=== PATIENT | male | born 1990 | race Caucasian/White ===

== ENCOUNTER 2017-12-19 18:04 | Observation (INO) | payer MEDICAID ==
[~2017-12-19] VITALS: Ht 182.9 cm; Wt 95.3 kg
[2017-12-19] MEDS ORDERED: LEVE500T53 PO (18:50)
[2017-12-19] MEDS ORDERED: ZIPR20CA2 PO (18:50)
[2017-12-19] MEDS ORDERED: LITH150C PO (18:50)
[2017-12-19] MEDS ORDERED: CLON2TAB PO (18:50)
[2017-12-19] MEDS ORDERED: DIVA250T4 PO (18:50)
[2017-12-19 18:58] LABS: BASOPHILS # (AUTO) 0.03 x10^3/uL (0-0.1); BASOPHILS % (AUTO) 0 % (0-1); EOSINOPHILS # (AUTO) 0.18 x10^3/uL (0-0.4); EOSINOPHILS % (AUTO) 2 % (1-7); LYMPHOCYTES # (AUTO) 2.12 x10^3/uL (1-3.4); LYMPHOCYTES % (AUTO) 24 % (22-44); MD NO; MEAN CORPUSCULAR HEMOGLOBIN 31.7 pg (27.5-34.5); MEAN CORPUSCULAR HGB CONC 34.1 g/dL (33.2-36.2); MEAN CORPUSCULAR VOLUME 93.1 fL (81-97); MEAN PLATELET VOLUME 8.6 fL (7.4-10.4); MONOCYTES # (AUTO) 0.88 x10^3/uL (0.2-0.8); MONOCYTES % (AUTO) 10 % (2-9); NEUTROPHILS # (AUTO) 5.73 x10^3/uL (1.8-6.8); NEUTROPHILS % (AUTO) 64 % (42-75); PLATELET COUNT 304 x10^3/uL (130-400); RED BLOOD COUNT 4.24 x10^6/uL (4.38-5.82); RED CELL DISTRIBUTION WIDTH 14.5 % (9.4-14.8)
[2017-12-19 19:08] LABS: ALANINE AMINOTRANSFERASE 23 U/L (12-78); ALBUMIN 3.8 g/dL (3.4-5.0); ANION GAP 7 mmol/L (5-15); CALCIUM 8.7 mg/dL (8.5-10.1); CHLORIDE 104 mmol/L (98-107); CREATININE 0.71 mg/dL (0.7-1.3)
[2017-12-19 19:10] LABS: SALICYLATE LEVEL < 1.7 mg/dL (2.8-20.0)
[2017-12-19 19:12] LABS: ALKALINE PHOSPHATASE 68 U/L (45-117); BILIRUBIN,TOTAL 0.3 mg/dL (0.2-1.0); TOTAL PROTEIN 7.3 g/dL (6.4-8.2)
[2017-12-19 19:15] LABS: ACETAMINOPHEN < 2 mcg/mL (10-30)
[2017-12-19 20:17] LABS: AMPHETAMINE SCREEN, URINE Negative (Negative); BARBITURATE SCREEN, URINE Negative (Negative); BENZODIAZEPINE SCREEN, URINE Negative (Negative); CANNABINOID SCREEN, URINE Positive (Negative); COCAINE SCREEN, URINE Negative (Negative); METHADONE SCREEN, URINE Negative (Negative); OPIATE SCREEN, URINE Negative (Negative)
[2017-12-19] MEDS ORDERED: ZIPR20CA3 PO (20:49)
[2017-12-19] MEDS ORDERED: LITH300T3 PO (20:49)
[2017-12-19] MEDS ORDERED: DIVA-59 PO (20:50)
[2017-12-19] MEDS ORDERED: LITH600C PO (20:50)
[2017-12-19] MEDS ORDERED: CLON2TAB9 PO (20:50)
[2017-12-19] MEDS ORDERED: DOCUSATE 100 MG CAPSULE PO PRN (21:00)
[2017-12-19] MEDS ORDERED: ACETAMINOPHEN 325 MG TABLET PO PRN (21:00)
[2017-12-19] MEDS ORDERED: LORazepam 1MG TABLET PO PRN (21:00)
[2017-12-19] MEDS ORDERED: LORazepam 2 MG/ML, 1ML IM PRN (21:00)
[2017-12-19] MEDS: NICOTINE 7 MG/24 HR PATCH.TD24 TD SCH (21:00)
[2017-12-20 00:15] VITALS: BP 117/71
[2017-12-20] MEDS: LEVETIRACETAM 500 MG TABLET PO SCH ×3 (02:45→20:29)
[2017-12-20 07:59] VITALS: BP 116/76
[2017-12-20] MEDS ORDERED: LITHIUM CARBONATE 150 MG CAPSULE ONE (08:45)
[2017-12-20] MEDS: DIVALPROEX 250 MG TAB.ER.24H PO SCH (08:46)
[2017-12-20] MEDS: ZIPRASIDONE 20MG CAPSULE PO SCH (08:46)
[2017-12-20] MEDS: LITHIUM CARBONATE 300 MG CAPSULE PO SCH ×2 (08:47→20:27)
[2017-12-20 19:46] VITALS: BP 112/70
[2017-12-20] MEDS: NICOTINE 7 MG/24 HR PATCH.TD24 TD SCH (20:28)
[2017-12-21 07:37] VITALS: BP 112/73
[2017-12-21] MEDS: DIVALPROEX 250 MG TAB.ER.24H PO SCH (09:24)
[2017-12-21] MEDS: LEVETIRACETAM 500 MG TABLET PO SCH ×2 (09:25→20:36)
[2017-12-21] MEDS: LITHIUM CARBONATE 300 MG CAPSULE PO SCH ×2 (09:29→20:37)
[2017-12-21] MEDS: ZIPRASIDONE 20MG CAPSULE PO SCH (10:00)
[2017-12-21] MEDS: NICOTINE 7 MG/24 HR PATCH.TD24 TD SCH (20:38)
[2017-12-21 20:43] VITALS: BP 100/69
[2017-12-22 08:12] VITALS: BP 120/77
[2017-12-22] MEDS: LEVETIRACETAM 500 MG TABLET PO SCH ×2 (08:18→20:15)
[2017-12-22] MEDS: LITHIUM CARBONATE 300 MG CAPSULE PO SCH ×2 (08:18→20:15)
[2017-12-22] MEDS: DIVALPROEX 250 MG TAB.ER.24H PO SCH (08:18)
[2017-12-22] MEDS: ZIPRASIDONE 20MG CAPSULE PO SCH (08:18)
[2017-12-22 19:35] VITALS: BP 122/76
[2017-12-22] MEDS: NICOTINE 7 MG/24 HR PATCH.TD24 TD SCH (21:00)
[2017-12-23 07:56] VITALS: BP 113/71
[2017-12-23] MEDS: DIVALPROEX 250 MG TAB.ER.24H PO SCH (08:32)
[2017-12-23] MEDS: LEVETIRACETAM 500 MG TABLET PO SCH (08:33)
[2017-12-23] MEDS: LITHIUM CARBONATE 300 MG CAPSULE PO SCH (08:33)
[2017-12-23] MEDS: ZIPRASIDONE 20MG CAPSULE PO SCH (08:33)
== END 2017-12-23 11:40 | disposition home or self-care (01) ==
LOC: ED 18:47 → INTOOBSV 20:19 → EDIP 20:19 → 2N 12-20 00:07
PROVIDERS: ADMIT Internal Medicine; ATTEND Internal Medicine
DX: R45.851 Suicidal ideations (principal); R44.0 Auditory hallucinations; G40.909 Epilepsy, unspecified, not intractable, without status epilepticus; F31.9 Bipolar disorder, unspecified; F20.9 Schizophrenia, unspecified; F12.10 Cannabis abuse, uncomplicated; F17.200 Nicotine dependence, unspecified, uncomplicated; M41.9 Scoliosis, unspecified; Z59.0 Homelessness; Z91.5 Personal history of self-harm
CPT/HCPCS: 36415; 80053; 80178; 80307; 80329; 85025; 93005; 99285; G0378; G0480

== ENCOUNTER 2017-12-29 14:40 | Emergency (ER) | payer MEDICAID ==
[~2017-12-29] VITALS: Ht 182.9 cm; Wt 88.0 kg
[~2017-12-29 14:40] MED LIST: CLON2TAB PO; CLON2TAB9 PO; DIVA-59 PO; DIVA250T4 PO; LEVE500T53 PO; LITH150C PO; LITH300T3 PO; LITH600C PO; ZIPR20CA2 PO; ZIPR20CA3 PO
[2017-12-29 14:55] VITALS: BP 124/81
[2017-12-29] MEDS ORDERED: IBUPROFEN 200 MG TABLET PO ONE (15:30)
[2017-12-29] MEDS ORDERED: PROPARACAINE OPHTH 0.5%, 15ML EACHEYE ONE (15:30)
[2017-12-29] MEDS ORDERED: FLUORESCEIN OPHTHALMIC 1 MG STRIP EACHEYE ONE (15:30)
[2017-12-29 15:39] LABS: BASOPHILS # (AUTO) 0.07 x10^3/uL (0-0.1); BASOPHILS % (AUTO) 1 % (0-1); EOSINOPHILS # (AUTO) 0.39 x10^3/uL (0-0.4); EOSINOPHILS % (AUTO) 5 % (1-7); LYMPHOCYTES # (AUTO) 1.77 x10^3/uL (1-3.4); LYMPHOCYTES % (AUTO) 22 % (22-44); MD NO; MEAN CORPUSCULAR HEMOGLOBIN 31.7 pg (27.5-34.5); MEAN CORPUSCULAR HGB CONC 33.8 g/dL (33.2-36.2); MEAN CORPUSCULAR VOLUME 93.7 fL (81-97); MONOCYTES # (AUTO) 0.83 x10^3/uL (0.2-0.8); MONOCYTES % (AUTO) 10 % (2-9); NEUTROPHILS # (AUTO) 5.07 x10^3/uL (1.8-6.8); NEUTROPHILS % (AUTO) 62 % (42-75); PLATELET COUNT 332 x10^3/uL (130-400); RED BLOOD COUNT 4.65 x10^6/uL (4.38-5.82); RED CELL DISTRIBUTION WIDTH 14.6 % (9.4-14.8)
[2017-12-29 15:50] LABS: ALANINE AMINOTRANSFERASE 21 U/L (12-78); ALBUMIN 3.8 g/dL (3.4-5.0); ANION GAP 9 mmol/L (5-15); CALCIUM 9.1 mg/dL (8.5-10.1); CHLORIDE 108 mmol/L (98-107); SALICYLATE LEVEL 1.8 mg/dL (2.8-20.0)
[2017-12-29 15:52] LABS: ACETAMINOPHEN < 2 mcg/mL (10-30); ALKALINE PHOSPHATASE 88 U/L (45-117); BILIRUBIN,TOTAL 0.7 mg/dL (0.2-1.0); TOTAL PROTEIN 7.9 g/dL (6.4-8.2)
[2017-12-29] MEDS ORDERED: IBUPROFEN 200 MG TABLET ONE (16:57)
[2017-12-29 17:50] LABS: AMPHETAMINE SCREEN, URINE Positive (Negative); BARBITURATE SCREEN, URINE Negative (Negative); BENZODIAZEPINE SCREEN, URINE Negative (Negative); CANNABINOID SCREEN, URINE Positive (Negative); COCAINE SCREEN, URINE Negative (Negative); METHADONE SCREEN, URINE Negative (Negative); OPIATE SCREEN, URINE Negative (Negative)
== END 2017-12-29 21:16 | disposition home or self-care (01) ==
LOC: ED 16:00
DX: F32.9 Major depressive disorder, single episode, unspecified (principal); S39.012A Strain of muscle, fascia and tendon of lower back, initial encounter; F20.9 Schizophrenia, unspecified; Z87.891 Personal history of nicotine dependence; X50.1XXA Overexertion from prolonged static or awkward postures, initial encounter; Y93.89 Activity, other specified; Y99.8 Other external cause status; Y92.89 Other specified places as the place of occurrence of the external cause
CPT/HCPCS: 36415; 72110; 80053; 80307; 80329; 85025; 99285; G0480

== ENCOUNTER 2018-04-05 10:25 | Emergency (ER) | payer MEDICAID ==
[~2018-04-05] VITALS: Ht 182.9 cm; Wt 83.6 kg
[2018-04-05 10:27] VITALS: BP 113/69
--- NOTE | 2018-04-05 10:30 | NUR ---
Normal voice, no bruising to neck noted.
[2018-04-05 11:02] LABS: BASOPHILS # (AUTO) 0.08 x10^3/uL (0-0.1); BASOPHILS % (AUTO) 1 % (0-1); EOSINOPHILS # (AUTO) 0.15 x10^3/uL (0-0.4); EOSINOPHILS % (AUTO) 2 % (1-7); LYMPHOCYTES # (AUTO) 1.49 x10^3/uL (1-3.4); LYMPHOCYTES % (AUTO) 17 % (22-44); MD NO; MEAN CORPUSCULAR HEMOGLOBIN 31.3 pg (27.5-34.5); MEAN CORPUSCULAR HGB CONC 34.2 g/dL (33.2-36.2); MEAN CORPUSCULAR VOLUME 91.5 fL (81-97); MEAN PLATELET VOLUME 8.4 fL (7.4-10.4); MONOCYTES # (AUTO) 0.71 x10^3/uL (0.2-0.8); MONOCYTES % (AUTO) 8 % (2-9); NEUTROPHILS % (AUTO) 72 % (42-75); PLATELET COUNT 330 x10^3/uL (130-400); RED BLOOD COUNT 5.08 x10^6/uL (4.38-5.82); RED CELL DISTRIBUTION WIDTH 14.7 % (9.4-14.8)
--- NOTE | 2018-04-05 11:05 | NUR ---
Note undone in EDM - 04/05/18 at 1107 by MAIN PT REPORTS TO ED FOR SI WITH SA BY STABGULATION LAST NIGHT. NECK WITHOUT SIGNS OF INJURY, RESP EVEN AND UNLABORED. PT STATES HX OF DEPRESSION AND SI/SA. PT IN SECURED ROOM, ALL PERSONAL BELONGINGS REMOVED AND PLACED IN SECURED STORAGE. 2 BAGS, CLOTHING, LABELED. SITTER IN PLACE WITH EYES ON PT.
--- NOTE | 2018-04-05 11:08 | NUR ---
PT REPORTS TO ED FOR SI WITH SA BY STRANGULATION LAST NIGHT. NECK WITHOUT SIGNS OF INJURY, RESP EVEN AND UNLABORED. PT STATES HX OF DEPRESSION AND SI/SA. PT IN SECURED ROOM, ALL PERSONAL BELONGINGS REMOVED AND PLACED IN SECURED STORAGE. 2 BAGS, CLOTHING, LABELED. SITTER IN PLACE WITH EYES ON PT.
[2018-04-05 11:13] LABS: ALBUMIN 4.1 g/dL (3.4-5.0); ANION GAP 5 mmol/L (5-15); CALCIUM 9.7 mg/dL (8.5-10.1); CHLORIDE 108 mmol/L (98-107)
[2018-04-05 11:16] LABS: ALANINE AMINOTRANSFERASE 20 U/L (12-78); ALKALINE PHOSPHATASE 101 U/L (45-117); BILIRUBIN,TOTAL 0.3 mg/dL (0.2-1.0); CREATININE 0.98 mg/dL (0.7-1.3); TOTAL PROTEIN 8.1 g/dL (6.4-8.2)
[2018-04-05 11:19] LABS: ACETAMINOPHEN < 2 mcg/mL (10-30); SALICYLATE LEVEL < 1.7 mg/dL (2.8-20.0)
--- NOTE | 2018-04-05 11:25 | NUR ---
PT RESTING ON GURNEY. AWARE OF NEED FOR URINE SAMPLE. PT PROVIDED WITH FLUIDS. SITTER IN PLACE.
--- NOTE | 2018-04-05 12:06 | NUR ---
PT AMBULATORY TO BATHROOM WITH STEADY GAIT FOR URINE SAMPLE
[2018-04-05 12:33] LABS: AMPHETAMINE SCREEN, URINE Positive (Negative); BARBITURATE SCREEN, URINE Negative (Negative); BENZODIAZEPINE SCREEN, URINE Negative (Negative); CANNABINOID SCREEN, URINE Positive (Negative); COCAINE SCREEN, URINE Negative (Negative); METHADONE SCREEN, URINE Negative (Negative); OPIATE SCREEN, URINE Negative (Negative)
--- NOTE | 2018-04-05 13:01 | NUR ---
ROOM SET UP FOR TELEPSYCH CONSULT.
--- NOTE | 2018-04-05 13:29 | NUR ---
TELEPSYCH CONSULT IN PROGRESS AT THIS TIME.
== END 2018-04-05 14:13 | disposition home or self-care (01) ==
LOC: ED 13:00
DX: R45.851 Suicidal ideations (principal); Z72.9 Problem related to lifestyle, unspecified; F20.9 Schizophrenia, unspecified; F31.9 Bipolar disorder, unspecified; Z87.891 Personal history of nicotine dependence
CPT/HCPCS: 36415; 80053; 80307; 80329; 85025; 99284; G0480

== ENCOUNTER 2018-05-10 07:31 | Emergency (ER) | payer MEDICAID ==
[~2018-05-10] VITALS: Ht 182.9 cm; Wt 88.3 kg
--- NOTE | 2018-05-10 07:47 | NUR ---
pt's belonging secured in ED locker, pt notified that BONILLA required, pt given warm blankets, no needs at this time, pt in view of nurses desk. Awaiting BARTOLOME Oscar.
[2018-05-10 08:18] LABS: BASOPHILS # (AUTO) 0.06 x10^3/uL (0-0.1); BASOPHILS % (AUTO) 1 % (0-1); EOSINOPHILS # (AUTO) 0.16 x10^3/uL (0-0.4); EOSINOPHILS % (AUTO) 2 % (1-7); LYMPHOCYTES # (AUTO) 1.99 x10^3/uL (1-3.4); LYMPHOCYTES % (AUTO) 22 % (22-44); MD NO; MEAN CORPUSCULAR HEMOGLOBIN 30.1 pg (27.5-34.5); MEAN CORPUSCULAR HGB CONC 33.4 g/dL (33.2-36.2); MEAN CORPUSCULAR VOLUME 90.2 fL (81-97); MEAN PLATELET VOLUME 7.8 fL (7.4-10.4); MONOCYTES # (AUTO) 0.72 x10^3/uL (0.2-0.8); MONOCYTES % (AUTO) 8 % (2-9); NEUTROPHILS # (AUTO) 5.99 x10^3/uL (1.8-6.8); NEUTROPHILS % (AUTO) 67 % (42-75); PLATELET COUNT 419 x10^3/uL (130-400); RED BLOOD COUNT 4.52 x10^6/uL (4.38-5.82)
[2018-05-10 08:29] LABS: ALANINE AMINOTRANSFERASE 18 U/L (12-78); ALBUMIN 3.3 g/dL (3.4-5.0); ANION GAP 6 mmol/L (5-15); CALCIUM 8.7 mg/dL (8.5-10.1); CHLORIDE 108 mmol/L (98-107); CREATININE 0.61 mg/dL (0.7-1.3)
[2018-05-10 08:33] LABS: ALKALINE PHOSPHATASE 79 U/L (45-117); BILIRUBIN,TOTAL 0.1 mg/dL (0.2-1.0); SALICYLATE LEVEL 2.6 mg/dL (2.8-20.0); TOTAL PROTEIN 7.1 g/dL (6.4-8.2)
[2018-05-10 08:34] LABS: ACETAMINOPHEN < 2 mcg/mL (10-30)
--- NOTE | 2018-05-10 08:48 | NUR ---
Recieved report from MAX Mahajan. All questions answered. Assuming care of pt. Pt resting on gurney. CURRAN
--- NOTE | 2018-05-10 08:56 | NUR ---
Pt moved to ED room 41. Room secured for SI. BORRERO. Pt states, "About 6 to 8 hours ago I tried to strangle myself with a rope around my neck. I don't want to hurt anyone else." Pt provided TV on per request. No other requests at this time. Sitters near doorway in direct line of sight for observation.
--- NOTE | 2018-05-10 08:57 | NUR ---
Pt aware of need of urine sample.
--- NOTE | 2018-05-10 09:06 | NUR ---
STEPHANIE FROM [facility] CALLED, HAS 2 ASSESSMENTS AHEAD OF THIS PATIENT, WILL BE HERE REVA
--- NOTE | 2018-05-10 09:22 | NUR ---
Sitter near doorway in direct line of sight for observation. NADN. No needs expressed at this time. Room remains SI precautions in place. Pt watching TV.
--- NOTE | 2018-05-10 10:25 | NUR ---
Pt resting on gurney watching TV. Room secured for SI precautions. Sitter near doorway in direct line of sight for observation. NADN. No needs requested at this time.
--- NOTE | 2018-05-10 10:43 | NUR ---
Pt states, "Can I get my stuff and be discharged? I am already feeling a lot better, I don't want to hurt myself, I don't want to stay here." ED PA aware. ED PA discussing plan of care with pt.
--- NOTE | 2018-05-10 11:12 | NUR ---
Pt up for discharge. Provided pt with personal belongings and a pair of hospital socks per request. Pt eating crackers and drinking juice. Pt appreciative. Pt deny SI or HI at this time. ADAIR.
[2018-05-10 11:13] VITALS: BP 130/88
--- NOTE | 2018-05-10 11:14 | NUR ---
Patient given discharge instructions and they have confirmed that they understand the instructions. Patient ambulatory with steady gait. Pt left with both personal belongings bags, all personal belongings, and discharge paperwork.
== END 2018-05-10 11:24 | disposition home or self-care (01) ==
LOC: ED 08:04
DX: R45.851 Suicidal ideations (principal); F20.9 Schizophrenia, unspecified; F31.9 Bipolar disorder, unspecified; Z72.9 Problem related to lifestyle, unspecified; F17.200 Nicotine dependence, unspecified, uncomplicated
CPT/HCPCS: 36415; 80053; 80307; 80329; 85025; 99283; G0480

== ENCOUNTER 2018-06-08 12:29 | Emergency (ER) | payer MEDICAID ==
[~2018-06-08] VITALS: Ht 182.9 cm; Wt 92.2 kg
[2018-06-08] MEDS ORDERED: ASPIRIN 81 MG TABLET CHEW PO ONE (13:00)
[2018-06-08 13:06] LABS: BASOPHILS # (AUTO) 0.03 x10^3/uL (0-0.1); BASOPHILS % (AUTO) 0 % (0-1); EOSINOPHILS % (AUTO) 1 % (1-7); LYMPHOCYTES # (AUTO) 1.51 x10^3/uL (1-3.4); LYMPHOCYTES % (AUTO) 19 % (22-44); MD NO; MEAN CORPUSCULAR HEMOGLOBIN 31.2 pg (27.5-34.5); MEAN CORPUSCULAR HGB CONC 34.5 g/dL (33.2-36.2); MEAN CORPUSCULAR VOLUME 90.6 fL (81-97); MEAN PLATELET VOLUME 8.5 fL (7.4-10.4); MONOCYTES # (AUTO) 0.73 x10^3/uL (0.2-0.8); MONOCYTES % (AUTO) 9 % (2-9); NEUTROPHILS # (AUTO) 5.81 x10^3/uL (1.8-6.8); NEUTROPHILS % (AUTO) 71 % (42-75); PLATELET COUNT 279 x10^3/uL (130-400); RED BLOOD COUNT 4.87 x10^6/uL (4.38-5.82); RED CELL DISTRIBUTION WIDTH 15.4 % (9.4-14.8)
[2018-06-08 13:14] LABS: ALBUMIN 4.2 g/dL (3.4-5.0); ANION GAP 8 mmol/L (5-15); CALCIUM 9.4 mg/dL (8.5-10.1); CHLORIDE 106 mmol/L (98-107); CREATININE 0.76 mg/dL (0.7-1.3)
--- NOTE | 2018-06-08 13:15 | NUR ---
PT TO ROOM FROM LOBBY
[2018-06-08 13:18] LABS: TROPONIN I < 0.015 ng/mL (0.000-0.045)
--- NOTE | 2018-06-08 13:35 | NUR ---
PT. IS A & O X 4 WITH C/O CHEST PAIN. PT. HAS HX OF METH USE. CP MONITOR IS IN PLACE. PT. WAS MEDICATED ORDERED. 12 LEAD EKG HAS BEEN DONE. PT. REMAINS PINK,WARM AND DRY. LUNGS ARE CTA. ABD. IS SOFT AND FLAT WITH BS + X 4 QUADS. SIDERAILS REMAIN UP X 2 WITH THE CALL LIGHT IN PLACE.
[2018-06-08] MEDS ORDERED: ASPIRIN 81 MG TABLET CHEW ONE (13:38)
[2018-06-08] MEDS ORDERED: MAALOX/HYOSCYAMINE/LIDOCAINE 45 ML BTL ONE (13:42)
[2018-06-08] MEDS ORDERED: KETOROLAC 30 MG/1 ML ONE (13:42)
--- NOTE | 2018-06-08 13:45 | NUR ---
PT. REMAINS MONITORED AND IS RESTING WITHOUT CONCERNS. VSS. NO ACUTE DISTRESS.
[2018-06-08] MEDS ORDERED: MAALOX/HYOSCYAMINE/LIDOCAINE 45 ML BTL PO ONE (14:00)
[2018-06-08] MEDS ORDERED: KETOROLAC 60 MG/2 ML IM ONE (14:00)
[2018-06-08 14:25] LABS: ALBUMIN 4.3 g/dL (3.4-5.0); BILIRUBIN, DIRECT 0.2 mg/dL (0.1-0.2)
[2018-06-08 14:28] LABS: BILIRUBIN,INDIRECT 0.6 mg/dL (0.0-2.0); BILIRUBIN,TOTAL 0.8 mg/dL (0.2-1.0); TOTAL PROTEIN 8.1 g/dL (6.4-8.2)
--- NOTE | 2018-06-08 14:42 | NUR ---
DR. WEAVER TO THE PT.'S BEDSIDE TO DISCUSS FINDINGS AND PLAN FOR DISCHARGE. PT. BECAME TEARFUL AND STATES HE IS HAVING SI DUE TO FAMILY STRESSORS. PT. STATES HE DOESN'T KNOW IF HE HAS A PLAN. PT. REMAINS MONITORED. MILVIA PENALOZA INFORMED OF PT.'S SI.
--- NOTE | 2018-06-08 15:03 | NUR ---
PT INSTRUCTED ON NEED FOR URINE SAMPLE
[2018-06-08 15:05] LABS: ACETAMINOPHEN < 2 mcg/mL (10-30); SALICYLATE LEVEL < 1.7 mg/dL (2.8-20.0)
--- NOTE | 2018-06-08 16:08 | NUR ---
PT RESTING IN [facility], PT TB EVAL BY [facility]
[2018-06-08 16:18] LABS: AMPHETAMINE SCREEN, URINE Positive (Negative); BARBITURATE SCREEN, URINE Negative (Negative); BENZODIAZEPINE SCREEN, URINE Negative (Negative); CANNABINOID SCREEN, URINE Positive (Negative); COCAINE SCREEN, URINE Negative (Negative); METHADONE SCREEN, URINE Negative (Negative); OPIATE SCREEN, URINE Negative (Negative)
--- NOTE | 2018-06-08 16:28 | NUR ---
called and faxed info to [place] for consult
--- NOTE | 2018-06-08 18:02 | NUR ---
PT LEGAL HOLD PER [facility], PT BEING MOVED TO ROOM 3
--- NOTE | 2018-06-08 18:32 | NUR ---
2 BAGS PT BELONGINGS SECURED IN PSYCH LOCKER
--- NOTE | 2018-06-08 19:10 | NUR ---
REPORT RECEIVED FROM MAX MCGRATH, ASSUMED CARE OF PT. PT GIVEN POWDER TO APPLY TO FEET, STRETCHER MOVED SO PT CAN WATCH TV, NO DISTRESS NOTED, CALL LIGHT IN REACH
[2018-06-08] MEDS ORDERED: ACETAMINOPHEN 325 MG TABLET PO PRN (20:00)
[2018-06-08] MEDS ORDERED: ONDANSETRON ODT 4 MG PO PRN (20:00)
[2018-06-08] MEDS ORDERED: BISACODYL 10 MG SUPP PR PRN (20:00)
[2018-06-08] MEDS ORDERED: POLYETHYLENE GLYCOL 17 GM PACKET PO PRN (20:00)
[2018-06-08] MEDS ORDERED: LEVETIRACETAM 500 MG TABLET ONE (20:49)
[2018-06-08] MEDS ORDERED: ZIPRASIDONE 20MG CAPSULE ONE (20:49)
--- NOTE | 2018-06-08 20:51 | NUR ---
TP RN: PACKET FAXED TO [facility], [facility], AND [facility].
[2018-06-08] MEDS ORDERED: LEVETIRACETAM 500 MG TABLET PO SCH (21:00)
[2018-06-08] MEDS ORDERED: NYSTATIN TOPICAL POWDER 15GM TP SCH (21:00)
[2018-06-08] MEDS ORDERED: ZIPRASIDONE 20MG CAPSULE PO SCH (21:00)
[2018-06-08] MEDS ORDERED: DIVALPROEX 250 MG TABLET.DR PO SCH (21:00)
--- NOTE | 2018-06-08 21:36 | NUR ---
TP RN: CONFIRMATION FAX RECEIVED FROM [facility], [facility], AND [facility].
--- NOTE | 2018-06-08 21:40 | NUR ---
CALL RECEIVED FROM [facility]--PT IS NOW PENDING BUT THEY CAN NOT EXCEPT S/T APPROPRIATE UNIT BEING AT CAPACITY. PER [facility], ACCEPTANCE WILL BE REASSESSED IN MORNING.
--- NOTE | 2018-06-08 21:48 | NUR ---
PT RESTING QUIELTY, WATCHING TV, NO DISTRESS NOTED, SITTER OUTSIDE DOOR
--- NOTE | 2018-06-08 22:31 | NUR ---
P GIVEN CHEERIOS AND MILK, CALM AND COOPERATIVE
--- NOTE | 2018-06-09 00:06 | NUR ---
PT GIVEN SANDWICH AND JUICE, CALM AND COOPERATIVE
--- NOTE | 2018-06-09 01:23 | NUR ---
Gene bates in [facility] - 06/09/18 at 0229 by JAN TELEPSYCH IN PROGRESS
--- NOTE | 2018-06-09 01:28 | NUR ---
RESTING QUIETLY WITH EYES CLOSED, SOFT SNORING HEARD, NO DISTRESS NOTED, SITTER OUTSIDE DOOR
--- NOTE | 2018-06-09 02:30 | NUR ---
PT CONTINUES TO REST WITH EYES CLOSED, SOFT SNORING HEARD, SITTER OUTSIDE DOOR
--- NOTE | 2018-06-09 04:45 | NUR ---
TRESS NOTED, SOFT SNORING HEARD, PT RESTING QUIETLY WITH EYES CLOSED, NO DISTRESS NOTED, SITTER OUT SIDE DOOR
--- NOTE | 2018-06-09 05:26 | NUR ---
PT BEDSIDE REPORT FROM JOHN RN. THIS RN TO ASSUME CARE OF PT. TRANSFERRED TO ROOM 41, FOR SITTER DECOMPRESSION, W/ ROLLER DOORS IN PLACE .SITTER IN HALLWAY. NO IMMEDIATE NEEDS FROM PT.
--- NOTE | 2018-06-09 05:52 | NUR ---
[facility] CALLED FOR REPORT ON PT. RN AT [facility] TO CALL PSYCHIATRIST AND TO UPDATE ON POC AFTER CONVERSATION.
--- NOTE | 2018-06-09 06:16 | NUR ---
PT SLEEPING COMFORTABLY. NADN. RR EVEN AND UNLABORED.
--- NOTE | 2018-06-09 06:59 | NUR ---
PT REPORT TO ARNOL SANTANA.
--- NOTE | 2018-06-09 07:22 | NUR ---
RECEIVED REPORT FROM TREASURE SANTANA, PLAN OF CARE DISCUSSED. ROOM SECURED, SITTER AT BS
[2018-06-09 07:41] VITALS: BP 101/62
--- NOTE | 2018-06-09 08:11 | NUR ---
SPOKE WITH MAI AT [facility]. CALLED [facility] TO INFORM OF APPROX [id number] ETA
[2018-06-09] MEDS ORDERED: SENNA/DOCUSATE TABLET PO SCH (09:00)
--- NOTE | 2018-06-09 09:25 | NUR ---
REMSA HERE TO TAKE PATIENT TO [facility], BELONGINGS WITH PATIENT TWO BAGS.
== END 2018-06-09 09:34 ==
LOC: ED 14:34 → UNDOADMIN 18:03 → EDIP 18:03 → ED 06-09 09:34
DX: F23 Brief psychotic disorder (principal); F15.10 Other stimulant abuse, uncomplicated; B35.3 Tinea pedis; F31.9 Bipolar disorder, unspecified; R07.9 Chest pain, unspecified; R10.13 Epigastric pain; F17.200 Nicotine dependence, unspecified, uncomplicated; Z72.9 Problem related to lifestyle, unspecified
CPT/HCPCS: 36415; 71045; 73660; 80048; 80076; 80307; 80329; 82040; 83690; 84484; 85025; 93005; 96372; 99285; J1885; 96374; G0480

== ENCOUNTER 2018-07-28 07:35 | Emergency (ER) | payer MEDICAID ==
[~2018-07-28] VITALS: Ht 182.9 cm; Wt 102.2 kg
[2018-07-28 07:43] VITALS: BP 132/79
--- NOTE | 2018-07-28 08:37 | NUR ---
PT PLACED IN SI PRECAUTIONS UPON ARRIVAL TO ROOM. RENZO. SITTER IN HALLWAY. PT STATES HE IS CURRENTLY HOMELESS, HAS FAMILY IN HOSPITAL, AND HIS CHILDRENS MOTHER WAS RECENTLY FOUND W/ HEROIN SO HIS CHILDREN ARE IN CPS CUSTODY. ALL OF THESE STRESSORS ARE CAUSING ANXIETY, LAST NIGHT STARTED HAVING SI; THIS MORNING HAD A KNIFE TO CUT HIS THROAT BUT GAVE IT TO A FRIEND TO KEEP HIM SAFE AND CAME HERE FOR HELP INSTEAD. STATES HE HAS CHILDREN AND THAT IS HIS REASON TO LIVE, WANTS HELP FOR HIMSELF. HAS BEEN INPATIENT PSYCH IN THE PAST; ALSO WAS AT [facility] FOR DETOX 2 MONTHS AGO. COOPERATIVE, RECEPTIVE TO HELP FROM STAFF.
--- NOTE | 2018-07-28 08:40 | NUR ---
PT SHOWERED IN SHOWER ROOM. CLEAN GOWN, SOCKS TO PT. AWARE URINE SAMPLE IS NEEDED, WATER TO PT
--- NOTE | 2018-07-28 08:50 | NUR ---
PT STATES HE TOOK HIMSELF OFF HIS HOME [place], [place], AND [place] LAST MONTH.
[2018-07-28 08:57] LABS: BASOPHILS # (AUTO) 0.07 x10^3/uL (0-0.1); BASOPHILS % (AUTO) 1 % (0-1); EOSINOPHILS # (AUTO) 0.08 x10^3/uL (0-0.4); EOSINOPHILS % (AUTO) 1 % (1-7); LYMPHOCYTES # (AUTO) 1.41 x10^3/uL (1-3.4); LYMPHOCYTES % (AUTO) 18 % (22-44); MD NO; MEAN CORPUSCULAR HEMOGLOBIN 30.9 pg (27.5-34.5); MEAN CORPUSCULAR HGB CONC 34.4 g/dL (33.2-36.2); MEAN CORPUSCULAR VOLUME 89.7 fL (81-97); MEAN PLATELET VOLUME 8.7 fL (7.4-10.4); MONOCYTES % (AUTO) 10 % (2-9); NEUTROPHILS # (AUTO) 5.35 x10^3/uL (1.8-6.8); NEUTROPHILS % (AUTO) 69 % (42-75); PLATELET COUNT 282 x10^3/uL (130-400); RED BLOOD COUNT 5.08 x10^6/uL (4.38-5.82); RED CELL DISTRIBUTION WIDTH 15.3 % (9.4-14.8)
[2018-07-28 09:01] LABS: ALANINE AMINOTRANSFERASE 21 U/L (12-78); ALBUMIN 4.1 g/dL (3.4-5.0); ANION GAP 7 mmol/L (5-15); CHLORIDE 106 mmol/L (98-107); CREATININE 0.77 mg/dL (0.7-1.3)
[2018-07-28 09:03] LABS: ALKALINE PHOSPHATASE 99 U/L (45-117); BILIRUBIN,TOTAL 0.6 mg/dL (0.2-1.0); TOTAL PROTEIN 7.9 g/dL (6.4-8.2)
[2018-07-28 09:07] LABS: ACETAMINOPHEN < 2 mcg/mL (10-30); SALICYLATE LEVEL < 1.7 mg/dL (2.8-20.0)
[2018-07-28 09:25] LABS: AMPHETAMINE SCREEN, URINE Positive (Negative); BARBITURATE SCREEN, URINE Negative (Negative); BENZODIAZEPINE SCREEN, URINE Negative (Negative); CANNABINOID SCREEN, URINE Positive (Negative); COCAINE SCREEN, URINE Negative (Negative); METHADONE SCREEN, URINE Negative (Negative); OPIATE SCREEN, URINE Negative (Negative)
--- NOTE | 2018-07-28 09:50 | NUR ---
RESTING COMFORTABLY IN ROOM. NO NEEDS AT THIS TIME. SITTER IN HALLWAY.
--- NOTE | 2018-07-28 10:09 | NUR ---
[facility] AT BEDSIDE
== END 2018-07-28 11:31 ==
LOC: ED 08:34
DX: F33.9 Major depressive disorder, recurrent, unspecified (principal); R45.851 Suicidal ideations; F20.9 Schizophrenia, unspecified; F17.200 Nicotine dependence, unspecified, uncomplicated
CPT/HCPCS: 36415; 80053; 80307; 85025; 99285

== ENCOUNTER 2019-01-16 18:56 | Emergency (ER) | payer MEDICAID, OTHER ==
[~2019-01-16] VITALS: Ht 185.4 cm; Wt 95.0 kg
--- NOTE | 2019-01-16 20:10 | NUR ---
Patient walked back to room. Patient not well kept, hands and clothes well soiled. Strong odor eminating from patient consistent with homelessness. [place] and confirms is homeless at this time. Patient resting in bed comfortably. Informed of provider order for u/a. Patient declines at this time reporting had just urinated prior to being brought back to room. Patient reports will inform sitter electronic imaging system operator when need to urinate arises. Patient changed into gown. All clothing removed except for boxers and belongings (shoes, shorts, and shirt, NO cell phone, watch, or jewelry.) Awaiting pyschiatric evaluation. patient reports attempting to kill himself by cutting his wrists, but no appreciable scars noted on arms. Addendum: 01/16/19 at 2048 by RENATO Doors dropped to eliminate access to medical equipment and linens. Sitter in hallway within view at most 2 steps away from patient.
[2019-01-16 20:32] LABS: BASOPHILS # (AUTO) 0.06 x10^3/uL (0-0.1); BASOPHILS % (AUTO) 1 % (0-1); EOSINOPHILS # (AUTO) 0.28 x10^3/uL (0-0.4); EOSINOPHILS % (AUTO) 4 % (1-7); LYMPHOCYTES # (AUTO) 2.05 x10^3/uL (1-3.4); LYMPHOCYTES % (AUTO) 26 % (22-44); MD NO; MEAN CORPUSCULAR HEMOGLOBIN 31.3 pg (27.5-34.5); MEAN CORPUSCULAR HGB CONC 33.6 g/dL (33.2-36.2); MEAN CORPUSCULAR VOLUME 93.1 fL (81-97); MEAN PLATELET VOLUME 8.3 fL (7.4-10.4); MONOCYTES # (AUTO) 0.93 x10^3/uL (0.2-0.8); MONOCYTES % (AUTO) 12 % (2-9); NEUTROPHILS # (AUTO) 4.59 x10^3/uL (1.8-6.8); NEUTROPHILS % (AUTO) 58 % (42-75); PLATELET COUNT 344 x10^3/uL (130-400); RED BLOOD COUNT 4.35 x10^6/uL (4.38-5.82); RED CELL DISTRIBUTION WIDTH 14.3 % (9.4-14.8)
[2019-01-16 20:41] LABS: ALANINE AMINOTRANSFERASE 22 U/L (12-78); ALBUMIN 3.9 g/dL (3.4-5.0); ANION GAP 9 mmol/L (5-15); CALCIUM 8.7 mg/dL (8.5-10.1); CHLORIDE 107 mmol/L (98-107); CREATININE 0.72 mg/dL (0.7-1.3); SALICYLATE LEVEL 1.9 mg/dL (2.8-20.0)
[2019-01-16 20:43] LABS: ALKALINE PHOSPHATASE 80 U/L (45-117); BILIRUBIN,TOTAL 0.3 mg/dL (0.2-1.0); TOTAL PROTEIN 7.5 g/dL (6.4-8.2)
[2019-01-16 21:46] LABS: AMPHETAMINE SCREEN, URINE Positive (Negative); BARBITURATE SCREEN, URINE Negative (Negative); BENZODIAZEPINE SCREEN, URINE Negative (Negative); CANNABINOID SCREEN, URINE Positive (Negative); COCAINE SCREEN, URINE Negative (Negative); METHADONE SCREEN, URINE Negative (Negative); OPIATE SCREEN, URINE Negative (Negative)
--- NOTE | 2019-01-17 00:50 | NUR ---
Patient resting comfortably. Urine provided for ua and sent off. Patient provided with additional warm blanket. Now resting comfortably on gurney with sitter at bedside.
--- NOTE | 2019-01-17 03:57 | NUR ---
TP: faxed packet to [facility].
--- NOTE | 2019-01-17 04:12 | NUR ---
[facility] CALLED, PT HAS REACHED HIS [facility], AND WILL NOT BE ACCEPETED THERE.
--- NOTE | 2019-01-17 06:53 | NUR ---
Gave report to MAX Suarez. Covered plan of care. Patient to be evaluated by psychiatry provider.
--- NOTE | 2019-01-17 07:02 | NUR ---
Receieved bedside report from MAX Evans. All questions answered. Assuming care of pt at this time. Pt resting on gurney with eyes closed laying on side. Room remains secured for SI and HI. Sitter near doorway in direct line of sight for observation. NADN. No needs expressed at this time.
--- NOTE | 2019-01-17 07:04 | NUR ---
Called and requested hospital bed from housekeeping.
--- NOTE | 2019-01-17 09:04 | NUR ---
Pt provided hospital bed and breakfast tray. Pt ambulates with steady gait and balance. NADN. No other needs expressed. Sitter remains near doorway in direct line of sight for observation.
--- NOTE | 2019-01-17 10:50 | NUR ---
Pt remains resting on hospital bed with eyes closed. TV in room is on. Sitter near doorway in direct line of sight for observation. NADN. No needs requested. Lunch tray ordered for pt.
--- NOTE | 2019-01-17 11:56 | NUR ---
LUNCH RN: PT SLEEPING IN HOSPITAL BED AT THIS TIME. NADN. SOTELO IN LYLE FOR CONTINUOUS MONITORING.
--- NOTE | 2019-01-17 12:04 | NUR ---
LUNCH RN: LUNCH TRAY DELIVERED. PT CALM AND COOPERATIVE AT THIS TIME EATING IN BED. ALL NEEDS MET AT THIS TIME
--- NOTE | 2019-01-17 12:13 | NUR ---
Pt sitting on hospital bed eating lunch tray provided. No needs requested. NADN. Sitter near doorway in direct line of sight for observation.
--- NOTE | 2019-01-17 14:06 | NUR ---
LATE NOTE ENRY FOR 1300: Pt sitting on hospital bed. No needs expressed. TV on. NADN. Sitter near doorway in direct line of sight for observation.
--- NOTE | 2019-01-17 14:08 | NUR ---
Pt resting on gurney watching TV. NADN. No needs expressed. Sitter near doorway in direct line of sight for observation.
[2019-01-17] MEDS ORDERED: ARIPIPRAZOLE 10 MG TABLET ONE (14:43)
[2019-01-17] MEDS: ARIPIPRAZOLE 10 MG TABLET PO SCH (14:48)
--- NOTE | 2019-01-17 14:48 | NUR ---
Provided medication per EMAR. Pt appreciative. Pt requesting snacks and juice. Provided juice and snacks to pt. NADN. No other needs expressed. Sitter near doorway in direct line of sight for jus.
--- NOTE | 2019-01-17 15:49 | NUR ---
Pt resting on hospital bed on left lateral side with eyes closed and unlabored respirations and even chest rise and fall. TV on in pt room. Sitter near doorway in direct line of sight for observation. NADN. No needs expressed.
--- NOTE | 2019-01-17 16:48 | NUR ---
LATE NOTE ENTRY DUE TO PT CARE. Pt provided dinner tray. Pt appreciative. Pt sitting on hospital bed watching TV. Sitter near doorway in direct line of sight for observation. NADN. No other needs expressed.
--- NOTE | 2019-01-17 18:16 | NUR ---
LATE NOTE ENTRY DUE TO PT CARE. Pt resting on hospital bed watching TV. NADN. No needs expressed. Sitter near doorway in direct line of sight for observation.
--- NOTE | 2019-01-17 19:33 | NUR ---
pt resting calmly, provided pt with juice, denies further needs, room secured, sitter at doorway for continous monitoring Addendum: 01/17/19 at 2003 by DONTE late entry 1932-pt stated " still feeling suicidal, plan to cut my wrist or jump on the tracks"
--- NOTE | 2019-01-17 19:38 | NUR ---
Provided report to MAX An. All questions answered. MAX An to assume care of pt at this time.
--- NOTE | 2019-01-17 20:04 | NUR ---
pt resting in bed,. denies needs, respirations even and unlabored, sitter at doorway for continous monitoring
--- NOTE | 2019-01-17 21:20 | NUR ---
pt resting in bed, nad, denies needs at this time, safety measures maintained, sitter at doorway for continous monitoring
--- NOTE | 2019-01-17 22:01 | NUR ---
PT RESTING IN BED, PROVIDED PT WITH PILLOW, DENIES NEEDS AT THIS TIME, SITTER AT DOORWAY FOR CONTINOUS MONITORING
--- NOTE | 2019-01-17 23:11 | NUR ---
PT RESTING IN BED, NAD, EQUAL CHEST RISE/FALL OBSERVED, SITTER AT DOORWAY FOR CONTINOUS MONITORING
--- NOTE | 2019-01-18 00:28 | NUR ---
BREAK RN: PT SLEEPING. SITTER OUTSIDE DOOR. ROOM REMAINS SECURE, WILL CONTINUE TO MONITOR.
--- NOTE | 2019-01-18 00:57 | NUR ---
PT RESTING IN BED, NAD, EQUAL CHEST RISE/FALL OBSERVED, SITTER AT DOORWAY FOR CONTINOUS MONITORING
--- NOTE | 2019-01-18 02:09 | NUR ---
pt resting in bed with eyes closed, nadn, equal chest rise/fall observed, sitter at doorway for continous monitoring
--- NOTE | 2019-01-18 03:05 | NUR ---
pt resting in bed with eyes closed, equal chest rise/fall observed, repositions self in bed, sitter at doorway for continous monitoring
--- NOTE | 2019-01-18 04:14 | NUR ---
pt resting in bed calmly with eyes closed, nadn, equal chest rise/fall observed, sitter at doorway for continous monitoring
--- NOTE | 2019-01-18 04:59 | NUR ---
pt resting in bed, nadn, observed equal chest rise/fall, sitter at doorway for continous monitoring
--- NOTE | 2019-01-18 06:11 | NUR ---
PT RESTING IN BED WITH EYES CLOSED, NADN, EQUAL CHEST RISE/FALL OBSERVED, SITTER AT DOORWAY FOR CONTINOUS MONITORING
--- NOTE | 2019-01-18 06:45 | NUR ---
REPORT RECEIVED FROM MAX HEADLEY. PLAN OF CARE DISCUSSED.
--- NOTE | 2019-01-18 06:46 | NUR ---
report given to sadiq espinoza
--- NOTE | 2019-01-18 06:53 | NUR ---
report given to sadiq freedman
--- NOTE | 2019-01-18 07:16 | NUR ---
ASSUMED CARE OF PT. PT IS ASLEEP IN NO DISTRESS, RESPIRATIONS EVEN UNLABORED. SITTER IS PRESENT.
--- NOTE | 2019-01-18 08:00 | NUR ---
Pt reports that his mood is "depressed" and rates deppression as 6/10. He denies anxiety 0/10, denies hallucinations and thoughts of harming others. He endorses SI with a plan to cut his wrists and says he would do that if he wasn't here and he does have access to knives on the outside. He is disheveled and unkempt with poor hygiene. He does not make eye contact during assessment.
[2019-01-18] MEDS ORDERED: ARIPIPRAZOLE 10 MG TABLET ONE (08:38)
[2019-01-18] MEDS: ARIPIPRAZOLE 10 MG TABLET PO SCH (08:44)
--- NOTE | 2019-01-18 08:53 | NUR ---
BREAKFAST WAS SERVED AND PT ATE 80%. HE AMBULATED TO THE BATHO WITH A STEADY GAIT. HE HAS NO REQUESTS AT THIS TIME.
--- NOTE | 2019-01-18 09:49 | NUR ---
KAREN RN: I spoke w/ David RN at [facility], this pt is not anticipated to receive a bed at [facility] this week.
--- NOTE | 2019-01-18 09:53 | NUR ---
Pt is asleep with no distress noted.
--- NOTE | 2019-01-18 10:32 | NUR ---
PT APPEARS TO BE ASLEEP IN NO DISTRESS, RESPIRATIONS EVEN, UNLABORED.
--- NOTE | 2019-01-18 10:47 | NUR ---
TP RN: this pt was declined admission to [facility] by Mitzi d/t lack of insurance
--- NOTE | 2019-01-18 11:30 | NUR ---
Pt is awake, eating a snack and drinking juice. He has no complaints.
--- NOTE | 2019-01-18 12:19 | NUR ---
Pt ate 75% of lunch. Luis E Friend OLY assessed pt.
--- NOTE | 2019-01-18 13:40 | NUR ---
Pt appears to be asleep in no distress.
--- NOTE | 2019-01-18 14:29 | NUR ---
Pt appears to be asleep in no distress.
--- NOTE | 2019-01-18 15:30 | NUR ---
Snack given, pt has no complaints.
--- NOTE | 2019-01-18 16:11 | NUR ---
Pt is resting comfortably, watching tv.
--- NOTE | 2019-01-18 17:26 | NUR ---
Pt given Sprite and crackere, waiting for dinner.
--- NOTE | 2019-01-18 18:28 | NUR ---
Pt ate 100 % of dinner and is resting comfortably.
--- NOTE | 2019-01-18 18:58 | NUR ---
REPORT FROM MAX ARCE
[2019-01-18 20:20] VITALS: BP 122/78
--- NOTE | 2019-01-18 20:21 | NUR ---
PT RESTING ON HOSPITAL BED. NO ACUTE DISTRESS. APPLE JUICE PROVIDED PER REQUEST. SITTER AT DOORWAY FOR TRUDY.
--- NOTE | 2019-01-18 22:41 | NUR ---
PT RESTING ON HOSPITAL BED WITH EYES CLOSED. RESPIRATIONS EVEN AND UNLABORED. NO ACUTE DISTRESS. 1:1 SITTER AT DOORWAY FOR SAFTEY.
--- NOTE | 2019-01-19 00:58 | NUR ---
LUNCH RN: PT ASLEEP IN [facility] AT THIS TIME WITH SITTER OUTSIDE OF ROOM FOR DIRECT OBSERVATION OF PT;
--- NOTE | 2019-01-19 03:55 | NUR ---
PT RESTING ON HOSPITAL BED WITH EYES CLOSED. RESPIRATIONS EVEN AND UNLABORED. NO ACUTE DISTRESS. 1:1 SITTER AT DOORWAY FOR SAFTEY.
--- NOTE | 2019-01-19 06:28 | NUR ---
PT RESTING ON HOSPITAL BED WITH EYES CLOSED. RESPIRATIONS EVEN AND UNLABORED. NO ACUTE DISTRESS. SITTER AT DOORWAY FOR SAFTEY.
--- NOTE | 2019-01-19 06:51 | NUR ---
REPORT FROM MAX VIDAL. PT IN BED, SITTER IN DIRECT LINE OF SIGHT. NAD NOTED.
[2019-01-19] MEDS: ARIPIPRAZOLE 10 MG TABLET PO SCH (09:00)
--- NOTE | 2019-01-19 11:52 | NUR ---
DIET TRAY ORDERED
--- NOTE | 2019-01-19 12:53 | NUR ---
Patient/Caregiver given discharge instructions and they have confirmed that they understand the instructions. Patient ambulatory with steady gait. All belongings w pt
== END 2019-01-19 12:55 | disposition home or self-care (01) ==
LOC: ED 01-17 04:02
DX: F33.9 Major depressive disorder, recurrent, unspecified (principal); R45.851 Suicidal ideations; F20.9 Schizophrenia, unspecified
CPT/HCPCS: 36415; 80053; 80307; 85025; 99284

== ENCOUNTER 2019-04-13 16:54 | Emergency (ER) | payer MEDICAID ==
[~2019-04-13] VITALS: Ht 182.9 cm; Wt 82.0 kg
[2019-04-13] MEDS ORDERED: LORazepam 1MG TABLET PO ONE (17:00)
[2019-04-13 17:15] LABS: BASOPHILS # (AUTO) 0.09 x10^3/uL (0-0.1); BASOPHILS % (AUTO) 1 % (0-1); EOSINOPHILS # (AUTO) 0.19 x10^3/uL (0-0.4); EOSINOPHILS % (AUTO) 3 % (1-7); LYMPHOCYTES # (AUTO) 2.18 x10^3/uL (1-3.4); LYMPHOCYTES % (AUTO) 32 % (22-44); MD NO; MEAN CORPUSCULAR HEMOGLOBIN 30.9 pg (27.5-34.5); MEAN CORPUSCULAR HGB CONC 33.8 g/dL (33.2-36.2); MEAN CORPUSCULAR VOLUME 91.3 fL (81-97); MONOCYTES # (AUTO) 0.68 x10^3/uL (0.2-0.8); MONOCYTES % (AUTO) 10 % (2-9); NEUTROPHILS # (AUTO) 3.61 x10^3/uL (1.8-6.8); NEUTROPHILS % (AUTO) 54 % (42-75); PLATELET COUNT 341 x10^3/uL (130-400); RED BLOOD COUNT 4.99 x10^6/uL (4.38-5.82); RED CELL DISTRIBUTION WIDTH 14.8 % (9.4-14.8)
--- NOTE | 2019-04-13 17:15 | NUR ---
ANN CAMPZUANO, PT FELL IN [place], PT STATES SI HX OF SI/SA. PT STATES HE DRANK 3 PINTS OF VODKA TODAY, PT ALSO USED METH. PAPER PRODUCTS SUPERVISOR MADE AWARE PT IS SI, WILL NEED SITTER.
[2019-04-13 17:23] LABS: ALBUMIN 3.8 g/dL (3.4-5.0); ANION GAP 4 mmol/L (5-15); CALCIUM 9.1 mg/dL (8.5-10.1); CHLORIDE 108 mmol/L (98-107); SALICYLATE LEVEL 2.9 mg/dL (2.8-20.0)
[2019-04-13 17:26] LABS: ALANINE AMINOTRANSFERASE 26 U/L (12-78); ALKALINE PHOSPHATASE 100 U/L (45-117); BILIRUBIN,TOTAL 0.6 mg/dL (0.2-1.0); CREATININE 0.59 mg/dL (0.7-1.3); TOTAL PROTEIN 7.8 g/dL (6.4-8.2)
--- NOTE | 2019-04-13 17:27 | NUR ---
RECEIVED REPORT FROM ANH Cintron RN. ASSUMING CARE AT THIS TIME.
[2019-04-13] MEDS ORDERED: LORazepam 1MG TABLET ONE (17:31)
--- NOTE | 2019-04-13 17:34 | NUR ---
MEDS ADMIN PER MAY. PT RESTING ON GURNEY WITH WARM BLANKETS. NADN. URINE SAMPLE PROVIDED. URINE COLLECTED AND TAKEN TO LAB.
--- NOTE | 2019-04-13 17:53 | NUR ---
DIET TRAY DELIVERED.
[2019-04-13 17:59] LABS: AMPHETAMINE SCREEN, URINE Positive (Negative); BARBITURATE SCREEN, URINE Negative (Negative); BENZODIAZEPINE SCREEN, URINE Negative (Negative); CANNABINOID SCREEN, URINE Positive (Negative); COCAINE SCREEN, URINE Negative (Negative); METHADONE SCREEN, URINE Negative (Negative); OPIATE SCREEN, URINE Negative (Negative)
--- NOTE | 2019-04-13 18:05 | NUR ---
ALL RESULTS ARE BACK AT THIS TIME. CHART UP FOR RECHECK.
--- NOTE | 2019-04-13 18:45 | NUR ---
SOC CALLED FOR TELEPSYCH CONSULT
--- NOTE | 2019-04-13 19:07 | NUR ---
PT SLEEPING ON [place]. ADAIR. PT IN DIRECT SIGHT OF SITTER.
--- NOTE | 2019-04-13 20:02 | NUR ---
BREAK RN FOR PRIMARY RN ADAM. PT RESTING IN POSITION OF COMFORT, DOZING INTERMITTENTLY. SITTER AT DOOR FOR CONTINUOUS SAFETY OBSERVATION. ROOM SAFE AND SECURED WITH GARAGE DOORS DOWN. FALL PRECAUTIONS IN PLACE.
--- NOTE | 2019-04-13 20:30 | NUR ---
BEDSIDE REPORT AND TRANSFER OF CARE BACK TO PRIMARY MAX MEDINA
--- NOTE | 2019-04-13 21:20 | NUR ---
SPOKE WITH TELEPSYCH MD TO GIVE REPORT.
--- NOTE | 2019-04-13 21:39 | NUR ---
RECEIVED CALLBACK FROM DR TRIPATHI, TELEPSYCH. RECOMMENDING INPATIENT CARE. MD WILL FAX REPORT.
--- NOTE | 2019-04-13 22:56 | NUR ---
PT RESTING COMFORTABLY, SLEEPING, ON GURNEY. ADAIR. PT IN DIRECT SIGHT OF SITTER.
[2019-04-13] MEDS ORDERED: DIVALPROEX 500 MG TABLET.DR PO ONE (23:04)
[2019-04-13] MEDS ORDERED: ZIPRASIDONE 20MG CAPSULE PO ONE (23:04)
--- NOTE | 2019-04-13 23:15 | NUR ---
THROUGHPUT RN: PT PLACED ON LEGAL [address] JACOBO S/P TELEPYSCH CONSULT. CALLED AND SPOKE TO TAY AT [facility], PT'S CHART BEING REVIEWED, AWAITING ACCEPTANCE/DENIAL FROM [facility] MD.
[2019-04-13] MEDS ORDERED: ZIPRASIDONE 20MG CAPSULE ONE (23:59)
[2019-04-13] MEDS ORDERED: DIVALPROEX 500 MG TAB.ER.24H ONE (23:59)
--- NOTE | 2019-04-14 00:11 | NUR ---
Assumed care from MAX Lopez Pt medicated per MAY. Pt given crackers and juice.
--- NOTE | 2019-04-14 00:30 | NUR ---
THROUGHPUT RN: TAY JEFFRIES RN AT BEDSIDE FOR PT EVALUATION
[2019-04-14] MEDS ORDERED: DIVA250T PO (00:53)
[2019-04-14] MEDS ORDERED: FLUO20CA19 PO (00:53)
--- NOTE | 2019-04-14 00:53 | NUR ---
Pt dozing in and out of sleep. Pt tolerating PO intake without problems.
--- NOTE | 2019-04-14 01:55 | NUR ---
Pt sleeping on [employer]. VSS.
--- NOTE | 2019-04-14 03:09 | NUR ---
Pt sleeping on gurney but awakened with RN entrance. More snacks provided. VSS.
--- NOTE | 2019-04-14 04:42 | NUR ---
SPOKE TO CAROLYNN Varela RN WHO STATES DR Brunson IS WILLING TO ACCEPT. Nichole IS NOW GETTING AUTH FROM INSURANCE.
--- NOTE | 2019-04-14 04:58 | NUR ---
Pt continues to sleep on [facility]. Pt will wake up and drink some juice and then fall back asleep. VSS. Sitter remains outside of room.
[2019-04-14 04:59] VITALS: BP 98/64
--- NOTE | 2019-04-14 05:23 | NUR ---
[facility] CALLED AND THEY ARE READY FOR THE PT PENDING REGISTRATION
--- NOTE | 2019-04-14 05:49 | NUR ---
At time of transfer to floor, pt awakens easily and is cooperative. VSS. Pt able to ambulate without assitance. Pt transferred to inpatient behavioral health unit.
== END 2019-04-14 05:53 ==
LOC: ED 18:30
DX: F32.9 Major depressive disorder, single episode, unspecified (principal); F41.8 Other specified anxiety disorders; F15.10 Other stimulant abuse, uncomplicated; F10.10 Alcohol abuse, uncomplicated; Y90.0 Blood alcohol level of less than 20 mg/100 ml; F20.9 Schizophrenia, unspecified
CPT/HCPCS: 36415; 80053; 80307; 85025; 99284; 99285

== ENCOUNTER 2019-04-14 05:29 | Inpatient (IN) | payer MEDICAID ==
[~2019-04-14] VITALS: Ht 182.9 cm; Wt 89.6 kg
[~2019-04-14 05:29] MED LIST changes: +DIVA250T PO; +FLUO20CA19 PO
[2019-04-14 05:45] VITALS: BP 103/68
[2019-04-14] MEDS ORDERED: DOCUSATE 100 MG CAPSULE PO PRN (06:00)
[2019-04-14] MEDS ORDERED: BISACODYL 10 MG SUPP PR PRN (06:00)
[2019-04-14] MEDS ORDERED: ACETAMINOPHEN 325 MG TABLET PO PRN (06:00)
[2019-04-14] MEDS ORDERED: POLYETHYLENE GLYCOL 17 GM PACKET PO PRN (06:00)
[2019-04-14] MEDS ORDERED: CHLORDIAZEPOXIDE 25 MG CAPSULE PO PRN ×3 (07:00)
[2019-04-14] MEDS ORDERED: CHLORDIAZEPOXIDE 10 MG CAPSULE PO PRN (07:00)
[2019-04-14 07:12] VITALS: BP 118/69
[2019-04-14 08:01] LABS: CHOL/HDL RATIO 2.6; FREE T4 (FREE THYROXINE) 1.1 ng/dL (0.76-1.46); LDL/HDL RATIO 1.3 (0.5-3.0)
[2019-04-14] MEDS: FOLIC ACID 1 MG TABLET PO SCH (08:33)
[2019-04-14] MEDS: THIAMINE 100MG TABLET PO SCH (08:33)
[2019-04-14 11:44] VITALS: BP 118/69
[2019-04-14] MEDS ORDERED: NICOTINE 21 MG/24 HR PATCH.TD24 ONE (12:03)
[2019-04-14] MEDS: NICOTINE 21 MG/24 HR PATCH.TD24 TD SCH (12:05)
[2019-04-14] MEDS: ACAMPROSATE 333 MG TABLET.DR PO SCH ×2 (17:16→21:43)
[2019-04-14 19:44] VITALS: BP 108/71
[2019-04-14] MEDS: QUETIAPINE 25MG TABLET PO SCH (21:43)
[2019-04-15 07:21] VITALS: BP 133/79
[2019-04-15] MEDS: SERTRALINE 50MG TABLET PO SCH (07:50)
[2019-04-15] MEDS: FOLIC ACID 1 MG TABLET PO SCH (07:50)
[2019-04-15] MEDS: THIAMINE 100MG TABLET PO SCH (07:50)
[2019-04-15] MEDS: ACAMPROSATE 333 MG TABLET.DR PO SCH ×3 (07:50→20:20)
[2019-04-15] MEDS: NICOTINE 21 MG/24 HR PATCH.TD24 TD SCH (07:51)
[2019-04-15 19:11] VITALS: BP 129/79
[2019-04-15] MEDS: QUETIAPINE 25MG TABLET PO SCH (20:21)
[2019-04-16 07:36] VITALS: BP 120/73
[2019-04-16] MEDS: THIAMINE 100MG TABLET PO SCH (09:46)
[2019-04-16] MEDS: ACAMPROSATE 333 MG TABLET.DR PO SCH ×3 (09:46→20:32)
[2019-04-16] MEDS: FOLIC ACID 1 MG TABLET PO SCH (09:46)
[2019-04-16] MEDS: SERTRALINE 50MG TABLET PO SCH (09:46)
[2019-04-16] MEDS: NICOTINE 21 MG/24 HR PATCH.TD24 TD SCH (09:46)
[2019-04-16 19:26] VITALS: BP 117/69
[2019-04-16] MEDS: QUETIAPINE 25MG TABLET PO SCH (20:32)
[2019-04-17 07:20] VITALS: BP 118/78
[2019-04-17] MEDS: ACAMPROSATE 333 MG TABLET.DR PO SCH ×3 (08:11→21:01)
[2019-04-17] MEDS: SERTRALINE 50MG TABLET PO SCH (08:12)
[2019-04-17] MEDS: NICOTINE 21 MG/24 HR PATCH.TD24 TD SCH (08:12)
[2019-04-17] MEDS: THIAMINE 100MG TABLET PO SCH (08:12)
[2019-04-17] MEDS: FOLIC ACID 1 MG TABLET PO SCH (08:12)
[2019-04-17 19:53] VITALS: BP 136/70
[2019-04-17] MEDS: QUETIAPINE 25MG TABLET PO SCH (21:01)
[2019-04-18 07:30] VITALS: BP 127/79
[2019-04-18] MEDS: THIAMINE 100MG TABLET PO SCH (08:30)
[2019-04-18] MEDS: ACAMPROSATE 333 MG TABLET.DR PO SCH ×3 (08:30→20:38)
[2019-04-18] MEDS: FOLIC ACID 1 MG TABLET PO SCH (08:30)
[2019-04-18] MEDS: SERTRALINE 50MG TABLET PO SCH (08:30)
[2019-04-18] MEDS: NICOTINE 21 MG/24 HR PATCH.TD24 TD SCH (08:37)
[2019-04-18] MEDS ORDERED: ACAM333T7 PO (15:43)
[2019-04-18] MEDS ORDERED: NICO-487 TD (15:43)
[2019-04-18] MEDS ORDERED: SERT50TA28 PO (15:43)
[2019-04-18] MEDS ORDERED: QUET25TA7 PO (15:43)
[2019-04-18 19:15] VITALS: BP 117/69
[2019-04-18] MEDS: QUETIAPINE 25MG TABLET PO SCH (20:39)
[2019-04-19] MEDS: ACAMPROSATE 333 MG TABLET.DR PO SCH (08:32)
[2019-04-19] MEDS: SERTRALINE 50MG TABLET PO SCH (08:32)
[2019-04-19] MEDS: NICOTINE 21 MG/24 HR PATCH.TD24 TD SCH (08:32)
[2019-04-19] MEDS: FOLIC ACID 1 MG TABLET PO SCH (08:32)
[2019-04-19] MEDS: THIAMINE 100MG TABLET PO SCH (08:32)
[2019-04-19 08:54] VITALS: BP 129/88
== END 2019-04-19 10:00 | disposition home or self-care (01) | DRG 885 ==
LOC: 3E 05:47
PROVIDERS: ADMIT Psychiatry & Neurology Psychosomatic Medicine; ATTEND Psychiatry & Neurology Psychosomatic Medicine
DX: F25.0 Schizoaffective disorder, bipolar type (principal); R45.851 Suicidal ideations; F15.20 Other stimulant dependence, uncomplicated; F10.20 Alcohol dependence, uncomplicated; G40.909 Epilepsy, unspecified, not intractable, without status epilepticus; F17.210 Nicotine dependence, cigarettes, uncomplicated; Y90.0 Blood alcohol level of less than 20 mg/100 ml; Z91.5 Personal history of self-harm; Z59.0 Homelessness; Z79.899 Other long term (current) drug therapy; Z82.5 Family history of asthma and other chronic lower respiratory diseases; Z80.8 Family history of malignant neoplasm of other organs or systems; Z81.1 Family history of alcohol abuse and dependence; Z81.8 Family history of other mental and behavioral disorders; Z88.0 Allergy status to penicillin
CPT/HCPCS: 36415; 71045; 80061; 82140; 82607; 84439; 84443; 93005

== ENCOUNTER 2019-04-27 23:39 | Emergency (ER) | payer MEDICAID ==
[~2019-04-27] VITALS: Ht 175.3 cm; Wt 72.7 kg
[~2019-04-27 23:39] MED LIST changes: +ACAM333T7 PO; +NICO-487 TD; +QUET25TA7 PO; +SERT50TA28 PO
[2019-04-28 01:15] VITALS: BP 125/82
--- NOTE | 2019-04-28 01:16 | NUR ---
PT AWAKEN VERBAL, SLURRED SPEECH AND UNABLE TO AMBULATE AT THIS TIME.
== END 2019-04-28 02:58 | disposition home or self-care (01) ==
LOC: ED 04-28 01:42
DX: F10.129 Alcohol abuse with intoxication, unspecified (principal); Y90.0 Blood alcohol level of less than 20 mg/100 ml
CPT/HCPCS: 93005; 99283

== ENCOUNTER 2019-05-19 07:44 | Emergency (ER) | payer MEDICAID ==
[~2019-05-19] VITALS: Ht 182.9 cm; Wt 89.3 kg
[2019-05-19 07:52] VITALS: BP 104/68
--- NOTE | 2019-05-19 08:02 | NUR ---
THIS IS A 28 YEAR OLD MALE WHO STATES COUGH/SORE THROAT FOR AWHILE, AND IM SUICIDAL. DENIES PLAN, NOR SA. REPORTS STOPPED TAKING MEDS FOR BIPOLAR AND SCHIZOPHRENIA ABOUT 2 MONTHS AGO. ROOM SECURED. BELONGINS IN SAFEKEEPING, SITTER AT DOOR
[2019-05-19 08:48] LABS: BASOPHILS # (AUTO) 0.09 x10^3/uL (0-0.1); BASOPHILS % (AUTO) 2 % (0-1); EOSINOPHILS # (AUTO) 0.15 x10^3/uL (0-0.4); EOSINOPHILS % (AUTO) 3 % (1-7); LYMPHOCYTES # (AUTO) 1.75 x10^3/uL (1-3.4); LYMPHOCYTES % (AUTO) 29 % (22-44); MD NO; MEAN CORPUSCULAR HEMOGLOBIN 31.4 pg (27.5-34.5); MEAN CORPUSCULAR VOLUME 92.5 fL (81-97); MEAN PLATELET VOLUME 8.4 fL (7.4-10.4); MONOCYTES # (AUTO) 0.49 x10^3/uL (0.2-0.8); MONOCYTES % (AUTO) 8 % (2-9); NEUTROPHILS % (AUTO) 59 % (42-75); PLATELET COUNT 339 x10^3/uL (130-400); RED BLOOD COUNT 4.89 x10^6/uL (4.38-5.82); RED CELL DISTRIBUTION WIDTH 14.8 % (9.4-14.8)
[2019-05-19 08:55] LABS: ANION GAP 8 mmol/L (5-15); CALCIUM 8.8 mg/dL (8.5-10.1); CHLORIDE 108 mmol/L (98-107); CREATININE 0.75 mg/dL (0.7-1.3)
--- NOTE | 2019-05-19 08:55 | NUR ---
PT ATE 100% BREAKFAST, DISCUSSED NEED FOR URINE, PT VERBALIZED UNDERSTANDING. ROOM SECURED, PT VERBALIZED NO NEEDS AT THIS TIME
[2019-05-19 08:56] LABS: ALBUMIN 3.9 g/dL (3.4-5.0)
[2019-05-19 09:00] LABS: SALICYLATE LEVEL 2.3 mg/dL (2.8-20.0)
--- NOTE | 2019-05-19 10:01 | NUR ---
PT SLEEPING, RESP EVEN AND UNLABORED. SITTER AT DOOR, ROOM REMAINS SECURED
--- NOTE | 2019-05-19 11:06 | NUR ---
PT SLEEPING, RESP EVEN AND UNLABORED. ORDERED LUNCH
--- NOTE | 2019-05-19 11:56 | NUR ---
JUICE PROVIDED FOR PATIENT, EXPLAINED NEED FOR UA. PT VERBALIZED UNDERSTANDING. SITTER AT DOOR, ROOM REMAINS SECURED
[2019-05-19 13:10] LABS: AMPHETAMINE SCREEN, URINE Positive (Negative); BARBITURATE SCREEN, URINE Negative (Negative); BENZODIAZEPINE SCREEN, URINE Negative (Negative); CANNABINOID SCREEN, URINE Positive (Negative); COCAINE SCREEN, URINE Negative (Negative); METHADONE SCREEN, URINE Negative (Negative); OPIATE SCREEN, URINE Negative (Negative)
[2019-05-19] MEDS ORDERED: SERTRALINE 50MG TABLET PO SCH (14:00)
[2019-05-19] MEDS ORDERED: SERTRALINE 50MG TABLET ONE (14:49)
--- NOTE | 2019-05-19 16:23 | NUR ---
Patient/Caregiver given discharge instructions and they have confirmed that they understand the instructions. Patient ambulatory with steady gait. TAXI CAB SLIP TO EDU GARCIA VERBALIZED UNDERSTANDING
[2019-05-19] MEDS ORDERED: QUETIAPINE 25MG TABLET PO SCH (21:00)
== END 2019-05-19 16:26 | disposition home or self-care (01) ==
LOC: ED 11:25
DX: F25.9 Schizoaffective disorder, unspecified (principal); F15.10 Other stimulant abuse, uncomplicated; F10.10 Alcohol abuse, uncomplicated; Y90.0 Blood alcohol level of less than 20 mg/100 ml
CPT/HCPCS: 36415; 80048; 80307; 82040; 85025; 99284

== ENCOUNTER 2019-10-15 02:00 | Emergency (ER) | payer MEDICAID ==
[~2019-10-15] VITALS: Ht 182.9 cm; Wt 81.0 kg
[2019-10-15 02:25] LABS: BASOPHILS # (AUTO) 0.03 x10^3/uL (0-0.1); BASOPHILS % (AUTO) 0 % (0-1); EOSINOPHILS # (AUTO) 0.29 x10^3/uL (0-0.4); EOSINOPHILS % (AUTO) 4 % (1-7); LYMPHOCYTES # (AUTO) 2.48 x10^3/uL (1-3.4); LYMPHOCYTES % (AUTO) 30 % (22-44); MD NO; MEAN CORPUSCULAR HEMOGLOBIN 31.7 pg (27.5-34.5); MEAN CORPUSCULAR HGB CONC 34.3 g/dL (33.2-36.2); MEAN CORPUSCULAR VOLUME 92.5 fL (81-97); MEAN PLATELET VOLUME 8.1 fL (7.4-10.4); MONOCYTES # (AUTO) 0.54 x10^3/uL (0.2-0.8); MONOCYTES % (AUTO) 7 % (2-9); NEUTROPHILS # (AUTO) 4.86 x10^3/uL (1.8-6.8); NEUTROPHILS % (AUTO) 59 % (42-75); PLATELET COUNT 377 x10^3/uL (130-400); RED BLOOD COUNT 4.83 x10^6/uL (4.38-5.82); RED CELL DISTRIBUTION WIDTH 14.2 % (9.4-14.8)
[2019-10-15 02:37] LABS: ALBUMIN 3.6 g/dL (3.4-5.0); ANION GAP 11 mmol/L (5-15); CALCIUM 8.6 mg/dL (8.5-10.1); CHLORIDE 112 mmol/L (98-107); SALICYLATE LEVEL 2.9 mg/dL (2.8-20.0)
[2019-10-15 02:40] LABS: ALANINE AMINOTRANSFERASE 26 U/L (12-78); ALKALINE PHOSPHATASE 97 U/L (45-117); BILIRUBIN,TOTAL 0.4 mg/dL (0.2-1.0); TOTAL PROTEIN 7.9 g/dL (6.4-8.2)
--- NOTE | 2019-10-15 02:55 | NUR ---
REPORT FROM CA SANTANA ASSUMING CARE OF PT AT THIS TIME
--- NOTE | 2019-10-15 03:20 | NUR ---
PT RESTING ON GURNEY LIGHTS DIMMED FOR COMFORT AND BLANKS PROVIDED. NO NEEDS AT THIS TIME
--- NOTE | 2019-10-15 04:07 | NUR ---
PT RESTING ON GURNEY RESP EVEN UNLABORED SITTER IN LYLE FOR SAFETY
--- NOTE | 2019-10-15 05:25 | NUR ---
PT PROVIDED WITH JUICE REQ STILL UNABLE TO URINATE AT THIS TIME. PT EDUCATED URINE SAMPLE IS NEEDED.
--- NOTE | 2019-10-15 07:00 | NUR ---
REC RPORT PT RESTING AT THIS TIME SITTER IN THE LYLE
--- NOTE | 2019-10-15 07:32 | NUR ---
Gene bates in [facility] - 10/15/19 at 1037 by AIDA PT TO US WITH TECH TRANSPORT
--- NOTE | 2019-10-15 09:05 | NUR ---
Break RN note: Pt resting in bed with eyes closed, resp even and unlabored, NADN. Room is secured, sitter within eyesight of pt, all safety measures observed.
--- NOTE | 2019-10-15 12:12 | NUR ---
PSY EVAL INTO SEE THE PT
--- NOTE | 2019-10-15 12:22 | NUR ---
PER BASIM ABARCA PT NOW ADMETS TO WANT TO SHOOT HIMSELF AND WILL NOW PLACE THE PT ON A HOLD
[2019-10-15 12:27] LABS: AMPHETAMINE SCREEN, URINE Positive (Negative); BARBITURATE SCREEN, URINE Negative (Negative); BENZODIAZEPINE SCREEN, URINE Negative (Negative); CANNABINOID SCREEN, URINE Positive (Negative); COCAINE SCREEN, URINE Negative (Negative); METHADONE SCREEN, URINE Negative (Negative); OPIATE SCREEN, URINE Positive (Negative)
[2019-10-15] MEDS ORDERED: LORazepam 1MG TABLET PO PRN (14:30)
[2019-10-15] MEDS ORDERED: SERTRALINE 50MG TABLET PO SCH (14:30)
[2019-10-15] MEDS ORDERED: SERTRALINE 50MG TABLET ONE (15:07)
--- NOTE | 2019-10-15 16:49 | NUR ---
Called Medicaid Renee Amos @ [phone] and left a voice mail requesting pre-auth for in-patient psych care for this pt.
--- NOTE | 2019-10-15 18:39 | NUR ---
PACKET FAXED TO [facility], [facility] AND [facility]
--- NOTE | 2019-10-15 18:54 | NUR ---
REPORT FROM MAX HARRIS. PT CARE RESPONSIBLITIES ASSUMED. SITTER CONTINUES IN DIRECT LINE OF SIGHT.
--- NOTE | 2019-10-15 20:51 | NUR ---
PT PROVIDED WITH SNACKS, PER REQUEST. SITTER CONTINUES IN DIRECT LINE OF SIGHT.
[2019-10-15] MEDS ORDERED: QUETIAPINE 25MG TABLET PO SCH (21:00)
[2019-10-15] MEDS ORDERED: QUETIAPINE 25MG TABLET ONE (21:09)
--- NOTE | 2019-10-15 21:17 | NUR ---
PT REFUSING SEROQUEL. STATES "IT MAKES MY STOMACH UPSET".
--- NOTE | 2019-10-15 23:48 | NUR ---
PT CONTINUES SLEEPING AT THIS TIME, NAD NOTED, SITTER IN LINE OF SIGHT.
--- NOTE | 2019-10-16 01:15 | NUR ---
PT SLEEPING SOUNDLY, NAD NOTED, SITTER IN LINE OF SIGHT.
--- NOTE | 2019-10-16 04:22 | NUR ---
PT CONTINUES SLEEPING. NADN. SITTER IN SIGHT.
--- NOTE | 2019-10-16 04:32 | NUR ---
MT: JOSE CALLED AND ACCEPTED PT AND WOULD LIKE THE PT TRANSPORTED @0600. ACCEPTING DOCTOR WILL BE DR. BROWER.
[2019-10-16 05:44] VITALS: BP 105/62
== END 2019-10-16 06:19 ==
LOC: ED 11:36
DX: R45.851 Suicidal ideations (principal); F32.1 Major depressive disorder, single episode, moderate; F20.9 Schizophrenia, unspecified; Z90.89 Acquired absence of other organs
CPT/HCPCS: 36415; 80053; 80307; 84443; 85025; 99285

== ENCOUNTER 2020-10-27 13:08 | Emergency (ER) | payer MEDICAID ==
[~2020-10-27 13:08] MED LIST changes: -NICO-487 TD; +NICO-587 TD
--- NOTE | 2020-10-27 13:21 | NUR ---
parts coordinator: attempted to call patient for triage, no answer in lobby
--- NOTE | 2020-10-27 13:41 | NUR ---
NO ANSWER FROM TRIAGE
--- NOTE | 2020-10-27 15:16 | NUR ---
NO ANSWER FROM TRIAGE
== END 2020-10-27 15:17 | disposition left against medical advice (07) ==
LOC: ED 15:11
DX: Z48.02 Encounter for removal of sutures (principal); Z53.21 Procedure and treatment not carried out due to patient leaving prior to being seen by health care provider

== ENCOUNTER 2020-11-08 18:19 | Emergency (ER) | payer MEDICAID ==
[~2020-11-08] VITALS: Ht 182.9 cm; Wt 82.6 kg
[2020-11-08 20:17] LABS: BASOPHILS % (AUTO) 1 % (0-1); EOSINOPHILS % (AUTO) 6 % (1-7); LYMPHOCYTES % (AUTO) 29 % (22-44); MEAN CORPUSCULAR HEMOGLOBIN 31.6 pg (27.5-34.5); MEAN PLATELET VOLUME 7.2 fL (7.4-10.4); MONOCYTES % (AUTO) 12 % (2-9); NEUTROPHILS % (AUTO) 52 % (42-75); PLATELET COUNT 407 x10^3/uL (130-400); RED BLOOD COUNT 4.68 x10^6/uL (4.38-5.82); RED CELL DISTRIBUTION WIDTH 14.3 % (9.4-14.8)
[2020-11-08 20:28] LABS: ALBUMIN 3.6 g/dL (3.4-5.0); ANION GAP 5 mmol/L (5-15); CALCIUM 8.8 mg/dL (8.5-10.1); CHLORIDE 103 mmol/L (98-107)
[2020-11-08 20:35] LABS: CREATININE 0.82 mg/dL (0.7-1.3); TROPONIN I < 0.015 ng/mL (0.000-0.045)
--- NOTE | 2020-11-08 23:02 | NUR ---
patient ambulated without assistance and is alert and oriented times 4. patients VSS. provided crutches to patient as well because his left ankle is in pain. Taught patient how to use crutches and showed return demonstration of his understanding of how to use them
[2020-11-08 23:03] VITALS: BP 121/76
== END 2020-11-08 23:06 | disposition home or self-care (01) ==
LOC: ED 21:13
DX: S93.492A Sprain of other ligament of left ankle, initial encounter (principal); F10.20 Alcohol dependence, uncomplicated; R06.02 Shortness of breath; Y90.0 Blood alcohol level of less than 20 mg/100 ml; X58.XXXA Exposure to other specified factors, initial encounter; Y93.89 Activity, other specified; Y92.89 Other specified places as the place of occurrence of the external cause; Y99.8 Other external cause status
CPT/HCPCS: 36415; 71045; 80048; 82040; 84484; 85025; 93005; 99285